=== PATIENT | male | born 2000 | race Two or more races ===

== ENCOUNTER 2025-06-20 19:11 | Emergency (ER) | payer OTHER, SELFPAY ==
[2025-06-20 19:12] VITALS: BMI 34.9
[2025-06-20 19:44] VITALS: BP 156/105; PULSE 85; RESP 18; TEMP 36.9; O2SAT 97
--- NOTE | 2025-06-20 19:58 | XR_ITS ---
Examination: Ribs, left with upright PA chest, unilateral 5 views TECHNIQUE: Upright PA chest, AP, RPO, LPO, coned AP lower ribs total 5 views Exam date and time: June 20, 2025, 1957 hours INDICATIONS: Vomiting today with onset left rib pain Findings: Normal heart size No pneumothorax No acute rib fractures Impression: No pneumothorax pulmonary contusion or hemothorax No acute rib fractures
--- NOTE | 2025-06-20 19:58 | EKG_ITS ---
[facility] Test Date: 2025-06-20 Pat Name: EVARISTO CROFT Department: Room: - Gender: Male Rechecker: : 2000 Requested By: Nisreen Ojeda Order Number: [id number] Reading MD: Nisreen Ojeda Measurements Intervals [place] Rate: 81 P: 27 ND: 155 QRS: 84 QRSD: 85 T: 17 QT: 336 QTc: 392 Interpretive Statements SINUS RHYTHM No previous ECG available for comparison /store/S0/[id number]/ecg/[id number].pdf
--- NOTE | 2025-06-20 19:58 | XR_ITS ---
Examination: CT brain head without contrast. 2-D sagittal coronal reconstructions Date and time of exam: June 20, 2025, 2044 hours, comparison April 27, 2016 CTDI: vol (mGy): 55.3 DLP: (mGycm): 1088 INDICATIONS: Onset headache today Technique: Multiple CT axial sections of the brain have been obtained, 5 mm slice thickness. Contrast has not been administered. 2-D sagittal, coronal reconstructions have been obtained Low dose protocols were performed. One or more of the following dose reduction techniques were used; automated exposure control, adjustment of the mA and/or KV according to patient size, use of iterative reconstruction technique. Findings: No significant ventricular enlargement. Intra-axial or extra-axial hemorrhage density is not seen. No mass effect or midline shift Basal cisterns are not remarkable. Fourth ventricle is midline. Cranial vault intact. Impression: Negative for acute hemorrhage, mass effect or midline shift Advise clinical correlation and follow-up accordingly
[2025-06-20 21:06] LABS: Collection Type, Urine Clean Catch; Squamous Epithelial Cell,Urine 0 /hpf (0-5)
[2025-06-20 21:07] LABS: Basophils # (Auto) 0.1 Thou/mm3 (0.0-0.2); Basophils % (Auto) 1 % (0-2.5); Eosinophils # (Auto) 0.0 Thou/mm3 (0.0-0.5); Eosinophils % (Auto) 0 % (0-10); Hematocrit 46.1 % (41.0-53.0); Hemoglobin 15.9 g/dL (13.5-16.0); Immature Granulocytes Auto 0.05 Thou/mm3 (0.00-0.00); Lymphocytes # (Auto) 1.7 Thou/mm3 (1.0-4.8); Lymphocytes % (Auto) 15 % (10-50); Mean Corpuscular HGB Conc 34.5 g/dl (31.0-37.0); Mean Corpuscular Hemoglobin 30.2 pg (25.0-35.0); Mean Corpuscular Volume 88 fL (80-100); Monocytes # (Auto) 0.8 Thou/mm3 (0.0-0.8); Monocytes % (Auto) 7 % (0-12); Neutrophils # (Auto) 8.9 Thou/mm3 (1.8-7.7); Neutrophils % (Auto) 77 % (37-80); Nucleated Red Blood Cell # 0.00 Thou/mm3 (0.00-0.00); Nucleated Red Blood Cell % 0 /100 WBC (0); Platelet Count 356 Thou/mm3 (140-440); RDW Standard Deviation 38.8 fL (35.1-43.9); Red Blood Count 5.27 Miln/mm3 (4.50-5.90); White Blood Count 11.6 Thou/mm3 (3.8-10.6)
[2025-06-20 21:21] LABS: Bilirubin,Urine Negative (Negative); Blood,Urine Negative (Negative); Clarity,Urine Clear (Clear/Hazy); Color,Urine Yellow (Lt Yel-Yel); Glucose, Urine Negative (Negative); Ketones,Urine Trace (Negative); Leukocyte Esterase,Urine Negative (Negative); Nitrite,Urine Negative (Negative); PH,Urine 8.0 (5.0-7.0); Protein,Urine 1+ (Neg - Trace); RBC,Urine 2 /hpf (0-3); Specific Gravity,Urine 1.034 (1.001-1.035); Urobilinogen,Urine 2.0 mg/dL (0.0-1.0); WBC,Urine < 1 /hpf (0-5)
[2025-06-20 21:30] LABS: Alanine Aminotransferase 81 U/L (10-49); Albumin, Serum 4.9 gm/dL (3.5-5.0); Albumin/Globulin Ratio 1.3 (1.2-2.2); Alkaline Phosphatase 98 U/L (46-116); Anion Gap 11 (7-16); Aspartate Amino Transferase 67 U/L (0-34); BUN/Creatinine Ratio 11 Ratio (12-20); Bilirubin,Total 0.5 mg/dL (0.3-1.2); Blood Urea Nitrogen 10 mg/dL (9-23); Calcium 9.8 mg/dL (8.3-10.6); Calcium (Corrected) 9.8 mg/dL (8.5-10.1); Carbon Dioxide 25.7 mMol/L (20.0-31.0); Chloride 102 mMol/L (98-107); Creatinine (Component) 0.9 mg/dL (0.6-1.3); Estimated Creatinine Clearance 148.2 mL/min (>60); Globulin 3.7 gm/dL (2.3-3.5); Glucose 97 mg/dL (74-106); Lipase 35 U/L (12-53); Osmolality,Calculated 276 (275-295); Potassium 4.0 mMol/L (3.4-5.1); Sodium 139 mMol/L (136-145); Total Protein 8.6 gm/dL (5.7-8.2); Troponin I < 0.020 ng/mL (0.0-0.045); eGFR > 60 See Note
--- NOTE | 2025-06-20 21:48 | EDNOTE_ITS ---
ED Headache RME/HPI General Chief Complaint: Abdominal Pain Stated Complaint: UPPER ABD PAIN, H/A, FEELS LIKE FAINTING Time Seen by Provider: 06/20/25 19:26 Arrival date/time: 06/20/25 19:11 This is a case of 24-year-old male with no medical history came in in the emergency room due to headache frontal in location nonradiating throbbing in character associated with nausea vomit patient states that after he vomits he started to have left rib pain and left upper abdominal pain worsening of the symptoms this patient decided to sought consult here in the emergency room Limitations: no limitations Related Data Previous Rx's ?Medication ?Instructions ?Recorded Hydrocodone/Acetaminophen * (NORCO 1 tab PO Q6H PRN se sultana pain #10 04/02/17 5/325 *) tabs naproxen 500 mg tablet (Naprosyn) 500 mg PO BID PRN pa in #30 tabs 09/15/19 famotidine 20 mg tablet (Pepcid) 20 mg PO BID 30 days #60 tabs 06/20/25 hydrocodone 5 mg-acetaminophen 325 1 tab PO Q6H PRN pa in #12 tabs 06/20/25 mg tablet ondansetron 4 mg disintegrating 4 mg PO Q8H #20 tabs 1 08/21/24 tablet Allergies Allergy/AdvReac Type Severity Reaction Status Date / Time Sulfa (Sulfonamide Allergy Intermediate GOT WORSE Verified 09/15/19 00:12 Antibiotics) WITH MED NOT BETTER Review of Systems Review of Systems Systems Reviewed: All systems reviewed, normal except as documented Constitutional Constitutional: Reports system reviewed and no additional complaints, except as documented and Reports as per HPI Cardiovascular Cardiovascular: Reports system reviewed and no additional complaints, except as documented and Reports as per HPI Respiratory Respiratory: Reports system reviewed and no additional complaints, except as documented and Reports as per HPI Gastrointestinal Gastrointestinal: Reports system reviewed and no additional complaints, except as documented and Reports as per HPI Musculoskeletal Musculoskeletal: Reports system reviewed and no additional complaints, except as documented and Reports as per HPI Neurologic Neurologic: Reports system reviewed and no additional complaints, except as documented and Reports as per HPI Past Medical History Past Medical History NEUROLOGIC: Positive Head Trauma (multiple concussions) CARDIAC: Negative Congestive Heart Failure RESPIRATORY: Negative Chronic Obstructive Pulmonary Disease (COPD) GASTROINTESTINAL: Positive Gastroesophageal Reflux Disease GENITOURINARY: Negative Renal Disease ENT: Positive Head Trauma (multiple concussions) ENDOCRINE: Negative Diabetes Mellitus Type 1 or Diabetes Mellitus Type 2 PSYCHO/SOCIAL: Positive Bipolar Disorder and Anxiety Social History SMOKING STATUS: Never smoker ED Exam General Limitations: Present no limitations General appearance: Present alert, in no apparent distress and other (Patient is awake alert oriented not in distress nontoxic looking well-hydrated well nourished) Head Head exam: Present atraumatic, normocephalic and normal inspection Eye Eye exam: Present normal appearance, PERRL and EOMI ENT ENT exam: Present normal exam, normal oropharynx and mucous membranes moist Neck Neck exam: Present normal inspection, full ROM and trachea midline; Absent tenderness, meningismus or lymphadenopathy Chest Chest inspection: Present normal inspection, symmetric chest wall rise and other (Mild tenderness lateral rib but no crepitation no deformity no palpable rib fracture no subcutaneous emphysema); Absent tenderness Respiratory Respiratory exam: Present normal lung sounds bilaterally; Absent respiratory distress, wheezes, stridor, accessory muscle use or prolonged expiratory phase Cardiovascular Cardiovascular exam: Present regular rate, normal rhythm and normal heart sounds; Absent bradycardia, tachycardia, irregular rhythm, systolic murmur or diastolic murmur Abdominal Exam Abdominal exam: Present soft, tenderness (Mild tenderness left upper quadrant no CVA tenderness) and normal bowel sounds; Absent distention, guarding, rebound, rigidity, diminished bowel sounds, hyperactive bowel sounds, hypoactive bowel sounds, organomegaly, psoas sign, obturator sign, Sanchez's sign, Rovsing's sign, tenderness at McBurney's Point or scar Extremities Exam Extremities exam: Present normal inspection and full ROM Back Exam Back exam: Present normal inspection and full ROM Neurological Exam Neurological exam: Present alert, oriented X3, CN II-XII intact, normal gait and reflexes normal; Absent motor sensory deficit Psychiatric Psychiatric exam: Present normal affect and normal mood Skin Skin exam: Present warm, dry, intact, normal color and other (Excellent skin turgor) Course Quality Measures none Orders Category Date Time Status EKG (ED ONLY) *Do not use* NOW Care 06/20/25 19:58 Completed Insert IV NOW Care 06/21/25 00:[address] head/brain wo con Stat Exams 06/20/25 19:58 Completed EKG (ED Only) Stat Exams 06/20/25 19:58 Draft XR ribs LT 2V Stat Exams 06/20/25 19:58 Completed CBC Stat Lab 1220/25 20:34 Completed Comprehensive Metabolic Panel Stat Lab 06/20/25 20:34 Completed Lipase Stat Lab 06/20/25 20:34 Completed Troponin I Stat Lab 06/20/25 20:34 Completed Urinalysis Stat Lab 06/20/25 20:40 Completed Ketorolac Inj [Toradol Inj] Med 06/20/25 21:47 Discontinued 30 mg IVP X1 ONE Ondansetron Inj [Zofran Inj] Med 06/20/25 21:47 Discontinued 4 mg IVP X1 ONE Pantoprazole Inj [Protonix Inj] Med 06/20/25 21:47 Discontinued 40 mg IVP X1 ONE Sodium Chloride 0.9% 1000 ml [Ns] 1,000 ml Med 06/20/25 21:48 Discontinued IV 999 mls/hr Vital Signs Vital signs: Vital Signs Temperature 98.5 F 06/20/25 19:44 Pulse Rate 85 06/20/25 19:44 Respiratory Rate 18 06/20/25 19:44 Blood Pressure 156/105 H 06/20/25 19:44 Pulse Oximetry (%) 97 06/20/25 19:44 Oxygen Delivery Method Room Air 06/20/25 19:44 Oxygen saturation is 97% in room air Headache MDM Narrative MDM Narrative:: This is a case of 24-year-old male with no medical history came in in the emergency room due to headache frontal in location nonradiating throbbing in character associated with nausea vomit patient states that after he vomits he started to have left rib pain and left upper abdominal pain worsening of the symptoms this patient decided to sought consult here in the emergency room physical examination patient is awake alert oriented not in distress nontoxic looking well-hydrated well-nourished neurological exam is normal awake alert oriented x 4 no focal deficit GCS 15/15 steady gait memory intact no slurring speech no facial droop CN II to XII is normal negative Babinski motor or sensory reflex are all normal in all extremities there is a mild tenderness at the left upper quadrant but no guarding no rebound no rigidity negative psoas negative straight or negative Rovsing's negative quadrant is tender Sanchez sign negative Cva tenderness noted mild tenderness at the left lateral rib but no crepitation no deformity no palpable rib fracture lungs sound is clear heart normal rate regular rhythm no murmur no pitting edema based on my physical examination and history patient symptoms suggestive of headache possible migraine headache tension headache or sinus headache patient was given a dose of normal saline bolus Toradol Zofran which improved the symptoms patient also noted to have symptoms of gastritis thus patient was given Protonix also here in the emergency room based on my physical examination and history I do not think patient is having AL or acute abdomen dehydration meningitis CVA or TIA patient after giving the medication to improve and resolve the symptoms patient will follow-up with the neurologist for headache and clerk general office for gastritis Patient was discharged with comfortable condition walking with stable gait. Patient verbalized no further complains explained diagnosis and answered patient question. Patient is comfortable with the proposed management plan including the need to follow up with his/her primary care physician and any specialist if applicable Discussed patient for any urgent condition or worsening sx, He/She needed to go to emergency room immediately or call 911. Patient acknowledge the responsibility to follow up as instructed and to monitor her/his symptoms. For any persistence of the symptoms for more than 3-5 days return precaution advised. Discussed the result of the test and was given printed discharge instruction Patient data External records reviewed:: [facility] previous records Clinical information provided by:: patient Social determinants that could affect healthcare access:: none Patient has the following chronic illnesses:: None How is presenting disease/condition affected by chronic disease/condition?: no chronic disease Evaluation data The following diagnostics were reviewed and interpreted by me:: lab results, radiology exam(s) and EKG tracing(s) Lab and/or radiology exams considered but not ordered:: Reviewed Interpretation Summary: Reviewed Medications / Prescriptions Medications or Prescriptions considered but not ordered:: Given Medication administrations:: Medication Administration History Discontinued Medications Sodium Chloride (Ns) 1,000 mls @ 999 mls/hr IV .Q1H1M ONE Stop: 06/20/25 22:48 Last Infusion: 06/21/25 01:22 Dose: Infused Documented By: Admin: 06/21/25 00:53 Dose: 999 mls/hr Documented By: BD Ketorolac Tromethamine (Ketorolac Inj 30 Mg/Ml Vial) 30 mg IVP X1 ONE Stop: 06/20/25 21:48 Last Admin: 06/21/25 00:53 Dose: 30 mg Documented By: BD Ondansetron HCl (Ondansetron Inj 2 Mg/Ml Inj 2 Ml) 4 mg IVP X1 ONE; Protocol Stop: 06/20/25 21:48 Last Admin: 06/21/25 00:53 Dose: 4 mg Documented By: FAHEEM Pantoprazole Sodium (Pantoprazole Inj 40 Mg Vial) 40 mg IVP X1 ONE Stop: 06/20/25 21:48 Last Admin: 06/21/25 00:52 Dose: 40 mg Documented By: BD Given Consultations Consultation(s) initiated? (list below): No Diagnosis Differential diagnosis headache: migraine, tension headache, headache and sinusitis Most likely diagnosis given after review of the tests above:: Headache Admission Indicated Admission indicated?: not indicated Explain why admission is indicated or not indicated:: Not indicated Admission Request Was there a request for admission?: No Admission Attestation Admission request attestation: Not indicated Disposition Plan Disposition Plan: Discharge Discharge Attestation Discharge Attestation: The patient and all family members were given an opportunity to ask questions and understood the discharge instructions. Discharge instructions specifically effects, indications for sooner follow up or return to the emergency department, and the expected course of current diagnosis. Patient condition: Stable Discharge Plan Plan Patient Disposition: HOME (Self Care) Patient condition on transfer: Stable Prescriptions/Referrals Prescriptions/Med Rec: New hydrocodone-acetaminophen 5-325 mg tablet 1 tab PO Q6H MDD max 4 tabs per day PRN (Reason: pain) Qty: 12 0RF famotidine [Pepcid] 20 mg tablet 20 mg PO BID 30 Days Qty: 60 0RF ondansetron 4 mg tablet,disintegrating 4 mg PO Q8H Qty: 20 0RF No Action Hydrocodone/Acetaminophen * (NORCO 5/325 *) 1 TAB tablet 1 tab PO Q6H PRN (Reason: severe pain) Qty: 10 0RF naproxen [Naprosyn] 500 mg tablet 500 mg PO BID PRN (Reason: pain) Qty: 30 0RF Referrals: Alida Durán MD [Primary Care Provider, Nephrology] - In 1 week Problem List Clinical Impression: Headache, Abdominal pain, Gastritis, Rib sprain Patient/Caregiver Discharge Instructions Education Materials: Abdominal Pain, Self-Care for Headaches, ED Gastritis (Adult), ED Muscle Strain, Extremity Additional Instructions: Follow-up with your primary care physician in 2 days for reevaluation and to be referred to neurologist for further evaluation and treatment of your headache and to be referred to clerk general office for gastritis recurrence persistent worsening symptoms or any emergent concern call 911 or go to the nearest emergency room take your medication as directed increase water intake keep hydrated Pedialyte Gatorade for hydration avoid skipping of meals avoid spicy food avoid fatty fried high cholesterol food avoid soda coffee alcohol is advised Print Language: Yi Stand Alone Forms: Julisa Award Info., Patient Portal Info Letter PA/INCOME TAX PREPARER Supervising Physician PA/INCOME TAX PREPARER Supervising Physician: Dr. Alvarez
[2025-06-21 00:15] VITALS: BP 166/98; PULSE 84; RESP 19; TEMP 36.9; O2SAT 97
[2025-06-21] MEDS: ONDANSETRON INJ 2 MG/ML INJ 2 ML 4 MG IVP (00:53)
[2025-06-21] MEDS: KETOROLAC INJ 30 MG/ML VIAL IVP (00:53)
[2025-06-21] MEDS: SODIUM CHLORIDE 0.9% 1000 ML 1,000 ML 999 ML IV (00:53)
== END 2025-06-21 01:25 | disposition home or self-care (01) ==
PROVIDERS: Nurse Practitioner Family; Emergency Provider Emergency Medicine; PCP Internal Medicine
DX: S23.41XA Sprain of ribs, initial encounter (principal); K29.70 Gastritis, unspecified, without bleeding; R51.9 Headache, unspecified; X58.XXXA Exposure to other specified factors, initial encounter
CPT/HCPCS: 36415; 70450; 71100; 80053; 81001; 83690; 84484; 85025; 93005; 96374; 96375; 99284; J1885; J2405; J2470; J7030